=== PATIENT | male | born 1980 | race African-American/Black ===

== ENCOUNTER 2018-09-13 15:14 | Emergency (ER) | payer SELFPAY ==
[~2018-09-13] VITALS: Ht 177.8 cm; Wt 90.7 kg
[2018-09-13 15:42] LABS: BASO % 0 % (0-3); EOS % 0 % (0-3); HEMATOCRIT 40.9 % (39.0-53.0); HEMOGLOBIN 13.5 g/dL (13.0-17.5); LYMPH # 1.5 x10^3/uL (1.0-4.8); LYMPH % 20 % (24-48); MEAN CORPUSCULAR HEMOGLOBIN 26 pg (25-35); MEAN CORPUSCULAR HGB CONC 33 g/dL (31-37); MEAN CORPUSCULAR VOLUME 79 fL (79-100); MONO # 0.9 x10^3/uL (0.0-1.1); MONO % 12 % (0-9); NEUT # 4.9 x10^3/uL (1.8-7.7); NEUT % 67 % (31-73); PLATELET COUNT 221 x10^3/uL (140-400); RED CELL DISTRIBUTION WIDTH 13.1 % (11.5-14.5); WHITE BLOOD COUNT 7.3 x10^3/uL (4.0-11.0)
[2018-09-13] MEDS: IV NORMAL SALINE 1000ML BAG 1,000 ML IV SCH ×3 (15:42→19:00)
[2018-09-13] MEDS ORDERED: ACETAMINOPHEN 500 MG TABLET PO ONE (15:45)
[2018-09-13 15:52] LABS: PROTHROMBIN TIME PATIENT 15.3 SEC (11.7-14.0)
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
[2018-09-13 15:54] LABS: CALCIUM 9.2 mg/dL (8.5-10.1); CREATININE 1.3 mg/dL (0.7-1.3); GFR 74.8; POTASSIUM 3.7 mmol/L (3.5-5.1)
[2018-09-13 15:55] LABS: SALIC < 2.8 mg/dL (2.8-20.0)
[2018-09-13 15:56] LABS: ACETAMIN < 2 mcg/ml (10-30); ETHANOL < 10 mg/dL (0-10)
[2018-09-13 15:58] LABS: ALBUMIN 4.3 g/dL (3.4-5.0); ALBUMIN/GLOBULIN RATIO 1.3 (1.0-1.7); MAGNESIUM 1.5 mg/dL (1.8-2.4); TOTAL BILIRUBIN 0.8 mg/dL (0.2-1.0); TOTAL PROTEIN 7.6 g/dL (6.4-8.2)
--- NOTE | 2018-09-13 16:14 | RAD ---
EXAM: Head and cervical spine CT without contrast. HISTORY: Fall. TECHNIQUE: Computed tomographic images the head and cervical spine were obtained without contrast. *One or more of the following individualized dose reduction techniques were utilized for this examination: 1. Automated exposure control. 2. Adjustment of the mA and/or kV according to patient size. 3. Use of iterative reconstruction technique. COMPARISON: None. FINDINGS: Head: There is no hemorrhage. There is no mass effect or midline shift. There is no hydrocephalus. The ramirez-white matter differential pattern is intact. The orbits and visualized paranasal sinuses mastoid air cells are unremarkable. No calvarial lesion is seen. Cervical spine: There is cervical curvature due to thoracic scoliosis. There is no significant listhesis. The vertebral bodies are normal in height. The disc spaces are preserved. No suspicious osseous lesion is seen. No fracture is seen. There is mild foraminal narrowing at several levels. No severe stenosis is seen.. There is mild right apical emphysema. IMPRESSION: No acute intracranial finding or evidence of acute cervical spine trauma. Electronically signed by: Marizol Billings MD (09/13/2018 4:11 PM) [facility]
--- NOTE | 2018-09-13 16:15 | RAD ---
Exam performed: One view chest. Indication: Fever Date of Service: 09/13/2018 3:24 PM Comparison: None available. Single AP upright portable view chest findings: Cardiomediastinal silhouette is within limits of normal. No acute infiltrates, effusion or pneumothorax is detected. The bony structures are normal. Impression: No acute cardiopulmonary process is detected. Electronically signed by: Darlene Hooks MD (09/13/2018 4:12 PM) [facility]
[2018-09-13 17:44] LABS: BILIRUBIN,URINE NEGATIVE (NEG); CLARITY,URINE CLEAR; COLOR,URINE YELLOW; NITRITE,URINE NEGATIVE (NEG); PROTEIN,URINE NEGATIVE (NEG-TRACE); UROBILINOGEN,URINE 0.2 mg/dL (0.2 mg/dL)
[2018-09-13 17:47] LABS: BARBITURATES NEG (NEG); BENZODIAZEPINES NEG (NEG); CANNABINOIDS NEG (NEG); COCAINE NEG (NEG); METHADONE NEG (NEG); OPIATES NEG (NEG); PHENCYCLIDINE POS (NEG)
[2018-09-13 17:51] LABS: BACTERIA,URINE 0 /HPF (0-FEW); HYALINE CASTS, URINE MODERATE /HPF; RBC,URINE 0 /HPF (0-2); SQUAMOUS EPITHELIAL CELL,UR OCC /LPF; WBC,URINE 0 /HPF (0-4)
[2018-09-13 17:53] LABS: AMPHETAMINE/METHAMPHETAMINE NEG (NEG)
[2018-09-13 19:03] VITALS: BP 128/79
[2018-09-13] MEDS ORDERED: IBUPROFEN 400 MG TABLET. PO PRN (19:15)
[2018-09-13] MEDS ORDERED: NICOTINE 21MG PATCH. TD PRN (19:15)
[2018-09-13] MEDS ORDERED: IV NORMAL SALINE 1000ML BAG 1,000 ML IV SCH (19:15)
[2018-09-13] MEDS ORDERED: cloNIDine HCL 0.1 MG TABLET PO PRN (19:15)
[2018-09-13] MEDS ORDERED: ACETAMINOPHEN 500 MG TABLET PO PRN (19:15)
--- NOTE | 2018-09-15 08:12 | EKG ---
[facility] [address] [place] [address] Test Date: 2018-09-13 Test Time: 15:44:58 Pat Name: LULU DSOUZA Department: Room: Gender: M Real Estate Leasing Manager: : 1980 Requested By: LUCILLE GAN Order Number: [id number] Reading MD: Measurements Intervals [place] Rate: 95 P: 22 TN: 176 QRS: 49 QRSD: 88 T: 49 QT: 336 QTc: 425 Interpretive Statements SINUS RHYTHM QRS(T) CONTOUR ABNORMALITY CONSIDER ANTEROSEPTAL MYOCARDIAL DAMAGE POSSIBLY ABNORMAL ECG RI6.01 No previous ECG available for comparison
== END 2018-09-13 19:36 | disposition home or self-care (01) ==
LOC: ER 15:14
DX: F16.20 Hallucinogen dependence, uncomplicated (principal); R50.9 Fever, unspecified; M62.82 Rhabdomyolysis
CPT/HCPCS: 36415; 70450; 71045; 72125; 80053; 80307; 80329; 81001; 82140; 82150; 82553; 83605; 83690; 83735; 83880; 84145; 84443; 84484; 85025; 85610; 85730; 87040; 93005; 99285; G0480; J7030